=== PATIENT | female | born 2000 | race American Indian/Alaskan Native ===

== ENCOUNTER 2021-08-11 17:20 | Outpatient (CLI) | payer MEDICAID ==
[2021-08-11 17:47] VITALS: BP 115/55
[2021-08-11] MEDS ORDERED: LACTATED RINGERS 1,000 ML IV ONE (17:57)
[2021-08-11 18:29] LABS: Bacteria,Urine 1+ /HPF (Negative); Bilirubin,Urine NEG (Negative); Blood,Urine NEG (Negative); Color,Urine Yellow (Yellow); Mucus,Urine 1+ /HPF; Protein,Urine <15 mg/dL mg/dL (Negative); Urobilinogen,Urine < 2.0 mg/dL (<2.0)
[2021-08-11] MEDS ORDERED: TERBUTALINE 1 MG/1 ML INJ SUB-Q ONE (19:00)
[2021-08-11] MEDS ORDERED: ceFAZolin/Water 2 GM/20 ML 2 GM/20 ML SYRINGE IV NR (19:00)
== END 2021-08-11 20:06 | disposition home or self-care (01) ==
LOC: TRG 17:20 → APU 17:21 → TRG 20:06
PROVIDERS: ATTEND Obstetrics & Gynecology
DX: O62.9 Abnormality of forces of labor, unspecified (principal); Z3A.32 32 weeks gestation of pregnancy
CPT/HCPCS: 36415; 81001; 82731; J0690; J3105; J7120